=== PATIENT | male | born 1985 | race Caucasian/White ===

== ENCOUNTER 2024-10-11 13:29 | Emergency (ER) | payer SELFPAY ==
[2024-10-11] MEDS ORDERED: Famotidine/PF 20 mg/2ml Vial ONE (14:39)
[2024-10-11] MEDS ORDERED: diphenhydrAMINE 50 MG/ML VIAL ONE (14:39)
== END 2024-10-11 15:52 | disposition home or self-care (01) ==
LOC: ERS 13:29
DX: T78.2XXA Anaphylactic shock, unspecified, initial encounter (principal)
CPT/HCPCS: 96361; 96374; 96375; J1200; J1308; J2919

== ENCOUNTER 2025-01-21 23:30 | Emergency (ER) | payer SELFPAY ==
[2025-01-22] MEDS ORDERED: HYDROcodone/Acetaminophen 5/325 mg Tablet ONE (01:00)
== END 2025-01-22 01:15 | disposition home or self-care (01) ==
LOC: ERS 23:30
DX: K08.89 Other specified disorders of teeth and supporting structures (principal); F17.210 Nicotine dependence, cigarettes, uncomplicated
CPT/HCPCS: 96372; 99282